=== PATIENT | male | born 1950 | race Caucasian/White ===

== ENCOUNTER 2016-06-23 08:08 | Observation (INO) | payer MEDICARE, OTHER ==
[2016-06-23] VITALS (11 sets, daily range): BP systolic 134–188; BP diastolic 62–82; PULSE 56–73; RESP 17–20; TEMP 97.4–98.2; O2SAT 93–98
[~2016-06-23 08:08] MED LIST: ATEN-102 PO; ESZO2 PO; EZET10 PO; HYDR12.56 PO; LORA-474 OR; NIAC500 PO; NORV10TA OR; PRAS10TA PO; PRAV10 PO; PROB500T10 PO; PROT40TA PO; ST J81CH PO
--- NOTE | 2016-06-23 08:29 | PD ---
HPI Chief Complaint: Chest Pain Time Seen by Provider: 08:13 Travel History International Travel<30 days: No Contact w/Intl Traveler<30days: No History of Present Illness HPI This is a 66-year-old male who presents to the emergency department with chest discomfort that's been going on for 1 month, intermittent, described as mostly pain in his back radiating to the chest, associated with some shortness of breath and nausea. He has a history of a CABG and 2 stents subsequent to that surgery. He says this feels like angina. He went to the [place] 1 month ago and saw a physician assistant grocery. He was given Flexeril at that time. He hasn't had a stress test in over a year. He follows with a day camp counselor in [place]. He says overnight his pain has gotten worse and more constant and he feels like his pain is now in his left arm. He has had some nausea and some shortness of breath. He took 2 baby aspirin and a nitroglycerin tablets overnight. He says the pain is very mild at this point but he still feels it. PFSH Past Medical History Arthritis: Yes Autoimmune Disease: No Cancer: No Cardiac Catheterization: Yes Cardiovascular Problems: Yes High Cholesterol: Yes Chest Pain: Yes (nitroglycerine last taken years ago , took one today) Endocrine: No Genitourinary: No Hypertension: Yes Immune Disorder: No Musculoskeletal: Yes Neurologic: No Psychiatric: No Reproductive: No Sleep Apnea: Yes (uses C-PAP) Triglycerides - High: Yes Past Surgical History Cardiac Surgery: Yes (OPEN HEART 2000 stents 2010) Coronary Stent: Yes (4 STENTS) Social History Alcohol Use: No Tobacco Use: No Substance Use: No Allergies-Medications (Allergen,Severity, Reaction): Coded Allergies: Plavix (Verified Allergy, Severe, Swelling, 06/23/16) Terramycin (Verified Allergy, Severe, Shortness of Breath, 06/23/16) Uncoded Allergies: heparin (Allergy, Severe, Anaphylaxis, 06/22/11) Reported Meds & Prescriptions Reported Meds & Active Scripts Active Reported B Complex/Vitamin C (B Complex W/ C) 1 Cap Cap 1 Tab PO DAILY [Marine-D3] 2 Cap PO DAILY Effient (Prasugrel) 10 Mg Tab 10 Mg PO DAILY Furosemide 20 Mg Tab 20 Mg PO DAILY Atenolol 50 Mg Tab 50 Mg PO DAILY Isosorbide Mononitrate ER (Isosorbide Mononitrate) 30 Mg Jeremías 30 Mg PO DAILY D3 (Cholecalciferol) 1,000 Unit Tab 1,000 Units PO DAILY Probenecid 500 Mg Tab 500 Mg PO DAILY Aspirin 81 Mg Tabdr 81 Mg PO DAILY Losartan (Losartan Potassium) 100 Mg Tab 100 Mg PO DAILY Fish Oil ([place]-3 Fatty Acids) 1,200 Mg Cap Amlodipine (Amlodipine Besylate) 10 Mg Tab 10 Mg PO DAILY Metformin (Metformin HCl) 500 Mg Tab 500 Mg PO BIDPC With meals Lorazepam 1 Mg Tab 1 Mg PO BID PRN Trazodone (Trazodone HCl) 50 Mg Tab 25 Mg PO HS Gabapentin 300 Mg Cap 300 Mg PO BID Pantoprazole (Pantoprazole Sodium) 40 Mg Tab 40 Mg PO DAILY Ranexa ER 12 HR (Ranolazine) 500 Mg Tab 500 Mg PO BID Rosuvastatin (Rosuvastatin Calcium) 40 Mg Tab 40 Mg PO DAILY Methocarbamol 500 Mg Tab 750 Mg PO BID PRN Flonase Nasal [place] (Fluticasone Nasal Hydro) 50 Mcg/Act Hydro 50 Mcg EACH NARE BID Review of Systems Except as stated in HPI: all other systems reviewed are Neg Physical Exam Narrative GENERAL:Well appearing, no acute distress SKIN: Warm and dry. HEAD: Atraumatic. Normocephalic. EYES: Pupils equal and round. No injection or drainage. ENT: Moist mucous membranes NECK: Trachea midline. CARDIOVASCULAR: Regular rate and rhythm. No murmur appreciated. Midline sternotomy scar. RESPIRATORY: Clear to auscultation. Breath sounds equal bilaterally. GASTROINTESTINAL: Abdomen soft, non-tender, nondistended. MUSCULOSKELETAL: No obvious deformities. NEUROLOGICAL: Awake and alert. No obvious cranial nerve deficits. Moving all extremities. PSYCHIATRIC: Appropriate mood and affect; insight and judgment normal. Data Data Last Documented VS Vital Signs Date Time Temp Pulse Resp B/P Pulse Ox O2 Delivery O2 Flow Rate FiO2 06/23/16 09:24 Room Air 06/23/16 08:51 165/73 06/23/16 08:50 68 18 06/23/16 08:11 98.2 95 Orders Electrocardiogram (06/23/16 ) Complete Blood Count With Diff (06/23/16 08:23) Comprehensive Metabolic Panel (06/23/16 08:23) Prothrombin Time / Inr (Pt) (06/23/16 08:23) Act Partial Throm Time (Ptt) (06/23/16 08:23) Troponin I (06/23/16 08:23) Chest, Single Ap (06/23/16 08:23) Ecg Monitoring (06/23/16 08:23) Bilateral Bp Monitoring (06/23/16 08:23) Iv Access Insert/Monitor (06/23/16 08:23) Oximetry (06/23/16 08:23) Oxygen Administration (06/23/16 08:23) Nitroglycerin 2% Oint (Nitroglycerin 2% (06/23/16 08:30) Sodium Chloride 0.9% Flush (Ns Flush) (06/23/16 08:30) Amlodipine (Norvasc) (06/23/16 09:45) Atenolol (Tenormin) (06/23/16 09:45) Admit Order (Ed Use Only) (06/23/16 09:42) Labs Laboratory Tests Test 06/23/16 08:35 White Blood Count 9.5 TH/MM3 Red Blood Count 5.46 MIL/MM3 Hemoglobin 15.1 GM/DL Hematocrit 44.9 % Mean Corpuscular Volume 82.2 FL Mean Corpuscular Hemoglobin 27.7 PG Mean Corpuscular Hemoglobin 33.7 % Concent Red Cell Distribution Width 14.1 % Platelet Count 185 TH/MM3 Mean Platelet Volume 8.8 FL Neutrophils (%) (Auto) 77.3 % Lymphocytes (%) (Auto) 15.5 % Monocytes (%) (Auto) 5.6 % Eosinophils (%) (Auto) 1.3 % Basophils (%) (Auto) 0.3 % Neutrophils # (Auto) 7.3 TH/MM3 Lymphocytes # (Auto) 1.5 TH/MM3 Monocytes # (Auto) 0.5 TH/MM3 Eosinophils # (Auto) 0.1 TH/MM3 Basophils # (Auto) 0.0 TH/MM3 CBC Comment DIFF FINAL Differential Comment Prothrombin Time 11.0 SEC Prothromb Time International 1.0 RATIO Ratio Activated Partial 27.7 SEC Thromboplast Time Sodium Level 139 MEQ/L Potassium Level 3.9 MEQ/L Chloride Level 104 MEQ/L Carbon Dioxide Level 25.5 MEQ/L Anion Gap 10 MEQ/L Blood Urea Nitrogen 18 MG/DL Creatinine 1.35 MG/DL Estimat Glomerular Filtration 53 ML/MIN Rate Random Glucose 134 MG/DL Calcium Level 9.7 MG/DL Total Bilirubin 0.7 MG/DL Aspartate Amino Transf 30 U/L (AST/SGOT) Alanine Aminotransferase 54 U/L (ALT/SGPT) Alkaline Phosphatase 121 U/L Troponin I LESS THAN 0.02 NG/ML Total Protein 8.5 GM/DL Albumin 4.6 GM/DL MDM Medical Decision Making Medical Screen Exam Complete: Yes Emergency Medical Condition: Yes Interpretation(s) EKG: Normal sinus rhythm, no ST changes Afebrile, no tachycardia, hypertensive No leukocytosis Renal insufficiency Troponin negative Chest x-ray: Minimal parenchymal opacity of the lateral left base Differential Diagnosis Acute coronary syndrome, musculoskeletal back pain, pericarditis, pneumonia, aortic dissection Narrative Course This is a 66-year-old male who presents to the emergency department with extensive cardiac history with back pain that's present for one month. His EKG is reassuring. He is placed in a monitor and an IV was established. Labs are obtained which are reassuring. Chest x-ray demonstrates a minimal parenchymal opacity in the left lateral base the patient has no other signs of pneumonia. He took aspirin earlier this morning prior to arrival. He was given nitroglycerin as well as his home blood pressure medications in the setting of hypertension. Patient will be admitted to the chest pain center for cardiology evaluation. Diagnosis Primary Impression: Chest pain Qualified Code: R07.9 - Chest pain, unspecified type Admitting Information Admitting Physician Requests: Viviana Alamo MD Jun 23, 2016 08:29
[2016-06-23] MEDS ORDERED: SODIUM CHLORIDE 0.9% FLUSH 10 ML FLUSH IVF PRN (08:30)
[2016-06-23] MEDS ORDERED: NITROGLYCERIN 2% OINT 1 GM PACKET TOP ONE (08:30)
[2016-06-23 09:06] LABS: AUTOMATED NEUTROPHIL # 7.3 TH/MM3 (1.8-7.7); BASOPHIL % 0.3 % (0.0-2.0); EOSINOPHIL # 0.1 TH/MM3 (0-0.4); EOSINOPHIL % 1.3 % (0.0-4.0); HEMATOCRIT 44.9 % (39.0-51.0); HEMO FLAGS DIFF FINAL; LYMPH % 15.5 % (9.0-44.0); LYMPHOCYTE # 1.5 TH/MM3 (1.0-4.8); MEAN CELL VOLUME 82.2 FL (80.0-100.0); MEAN CORPUSCULAR HEMOGLOBIN 27.7 PG (27.0-34.0); MEAN CORPUSCULAR HGB CONC 33.7 % (32.0-36.0); MONO % 5.6 % (0.0-8.0); NEUT % 77.3 % (16.0-70.0); PLATELET COUNT 185 TH/MM3 (150-450); RED BLOOD COUNT 5.46 MIL/MM3 (4.50-5.90); RED CELL DISTRIBUTION WIDTH 14.1 % (11.6-17.2); WHITE BLOOD COUNT 9.5 TH/MM3 (4.0-11.0)
[2016-06-23 09:14] LABS: APTT (PATIENT) 27.7 SEC (24.3-30.1)
[2016-06-23] MEDS ORDERED: PANT40TA3 PO (09:22)
[2016-06-23] MEDS ORDERED: ROSU1TAB10 PO (09:22)
[2016-06-23] MEDS ORDERED: PRAS10TA PO (09:22)
[2016-06-23] MEDS ORDERED: FISH120014 (09:22)
[2016-06-23] MEDS ORDERED: ASPI1TAB69 PO (09:22)
[2016-06-23] MEDS ORDERED: RANO500 PO (09:22)
[2016-06-23] MEDS ORDERED: D31000TA PO (09:22)
[2016-06-23] MEDS ORDERED: ATEN50TA PO (09:22)
[2016-06-23] MEDS ORDERED: TRAZ50TA12 PO (09:22)
[2016-06-23] MEDS ORDERED: AMLO10TA2 PO (09:22)
[2016-06-23] MEDS ORDERED: METF500T PO (09:22)
[2016-06-23] MEDS ORDERED: B COCAP PO (09:22)
[2016-06-23] MEDS ORDERED: ISOS30TA3 PO (09:22)
[2016-06-23] MEDS ORDERED: LORA1TAB12 PO (09:22)
[2016-06-23] MEDS ORDERED: FLUT1SPR5 EACH NARE (09:22)
[2016-06-23] MEDS ORDERED: METH500T3 PO (09:22)
[2016-06-23] MEDS ORDERED: LOSA100T PO (09:22)
[2016-06-23] MEDS ORDERED: FURO20TA PO (09:22)
[2016-06-23] MEDS ORDERED: GABA300C5 PO (09:22)
[2016-06-23] MEDS ORDERED: PROB500T8 PO (09:22)
[2016-06-23 09:33] LABS: ALT (GPT) 54 U/L (12-78); ANION GAP 10 MEQ/L (5-15); BICARBONATE 25.5 MEQ/L (21.0-32.0); BLOOD UREA NITROGEN 18 MG/DL (7-18); CHLORIDE 104 MEQ/L (98-107); GLOMERULAR FILTRATION RATE 53 ML/MIN (>89); POTASSIUM 3.9 MEQ/L (3.5-5.1); SODIUM (NA) 139 MEQ/L (136-145)
[2016-06-23 09:35] LABS: ALKALINE PHOSPHATASE 121 U/L (45-117); TOTAL BILIRUBIN ADULT 0.7 MG/DL (0.2-1.0)
--- NOTE | 2016-06-23 09:40 | RADRPT ---
EXAM DATE/TIME: 06/23/2016 08:42 [facility] COMPARISON: No previous studies available for comparison. INDICATIONS : Chest and left arm pain. MEDICAL HISTORY : Cardiovascular disease. SURGICAL HISTORY : CABG. Quadruple bypass and 6 stents. ENCOUNTER: Initial ACUITY: 1 month PAIN SCORE: 4/10 LOCATION: Bilateral chest FINDINGS: There is minimal parenchymal opacity at the lateral left base which may be some scarring or atelectas is. Lungs otherwise clear. No significant effusion present. Cardiomediastinal contours are satisfacto ry. Sternotomy wires are present. CONCLUSION: Minimal parenchymal opacity at the lateral left base Marino Orozco MD on June 23, 2016 at 9:37 Board Certified Radiologist. This report was verified electronically.
[2016-06-23 09:41] LABS: AST (GOT) 30 U/L (15-37)
[2016-06-23] MEDS ORDERED: ATENOLOL 50 MG TAB PO ONE (09:45)
[2016-06-23] MEDS ORDERED: ONDANSETRON HCL 4 MG/2 ML VIAL IV PRN (10:30)
[2016-06-23] MEDS ORDERED: ACETAMINOPHEN 500 MG CPLT PO PRN (10:30)
[2016-06-23] MEDS ORDERED: NITROGLYCERIN 0.4 MG SL 25 TABS/BTL SL PRN (10:30)
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
[2016-06-23] MEDS: LOSARTAN 50 MG TAB PO SCH (12:23)
[2016-06-23] MEDS: ISOSORBIDE MONONITRATE 30 MG TAB PO SCH (12:23)
[2016-06-23] MEDS: GABAPENTIN 300 MG CAP PO SCH ×2 (12:24→21:10)
[2016-06-23] MEDS: FUROSEMIDE 20 MG TAB PO SCH (12:24)
[2016-06-23] MEDS: PANTOPRAZOLE SOD 40 MG DELAYED RELEASE TAB PO SCH (12:24)
[2016-06-23 12:32] LABS: CREATINE KINASE 132 U/L (39-308)
[2016-06-23 12:44] LABS: CKMB 1.3 NG/ML (0.5-3.6)
[2016-06-23] MEDS: PROBENECID 500 MG TAB PO SCH (13:45)
[2016-06-23] MEDS: ATORVASTATIN 80 MG TAB PO SCH (13:45)
[2016-06-23] MEDS: RANOLAZINE 500 MG EXTENDED RELEASE TAB PO SCH ×2 (13:45→21:10)
[2016-06-23 15:54] LABS: CREATINE KINASE 128 U/L (39-308)
[2016-06-23 16:06] LABS: CKMB 1.5 NG/ML (0.5-3.6)
[2016-06-23] MEDS: PRASUGREL 10 MG TAB PO SCH (16:22)
[2016-06-23] MEDS ORDERED: NITR1SUB3 SL (18:00)
[2016-06-23] MEDS: metFORMIN HCL 500 MG TAB PO SCH (18:47)
[2016-06-23] MEDS ORDERED: LORazepam 1 MG TAB PO PRN (19:00)
[2016-06-23] MEDS: FLUTICASONE PROPIONATE 50 MCG/ACT 16 GM NASAL SPRAY EACH NARE SCH (21:00)
[2016-06-23] MEDS: SODIUM CHLORIDE 0.9% FLUSH 10 ML FLUSH IV FLUSH SCH (21:00)
[2016-06-23] MEDS ORDERED: traZODone HCL 50 MG TAB PO SCH (21:00)
[2016-06-24 03:31] VITALS: BP 149/72; PULSE 57; RESP 20; TEMP 98.1; O2SAT 96
[2016-06-24 07:42] VITALS: BP 141/85; PULSE 56; RESP 18; TEMP 95.9; O2SAT 96
[2016-06-24] MEDS ORDERED: ASPIRIN 325 MG TAB PO SCH (09:00)
[2016-06-24] MEDS ORDERED: ATENOLOL 50 MG TAB PO SCH (09:00)
[2016-06-24] MEDS: SODIUM CHLORIDE 0.9% FLUSH 10 ML FLUSH IV FLUSH SCH (09:00)
[2016-06-24] MEDS ORDERED: REGADENOSON INJ 0.4 MG/5 ML SYR ONE (10:51)
--- NOTE | 2016-06-24 10:54 | EKG ---
Date Performed: 06/23/2016 Time Performed: 11:41:32 PTAGE: 66 years EKG: Sinus rhythm NONSPECIFIC ST & T-WAVE ABNORMALITY BORDERLINE ECG PREVIOUS TRACING : 06/23/2016 08.24 DOCTOR: Jair De Paz Interpretating Date/Time 06/24/2016 10:52:53
--- NOTE | 2016-06-24 10:59 | EKG ---
Date Performed: 06/23/2016 Time Performed: 08:24:51 PTAGE: 66 years EKG: Sinus rhythm MINIMAL ST DEPRESSION BORDERLINE ECG PREVIOUS TRACING : 06/22/2011 01.16 DOCTOR: Jair De Paz Interpretating Date/Time 06/24/2016 10:56:51
[2016-06-24] MEDS: PRASUGREL 10 MG TAB PO SCH (11:03)
[2016-06-24] MEDS: metFORMIN HCL 500 MG TAB PO SCH (11:03)
[2016-06-24] MEDS: PANTOPRAZOLE SOD 40 MG DELAYED RELEASE TAB PO SCH (11:03)
[2016-06-24] MEDS: LOSARTAN 50 MG TAB PO SCH (11:03)
[2016-06-24] MEDS: RANOLAZINE 500 MG EXTENDED RELEASE TAB PO SCH (11:04)
[2016-06-24] MEDS: ATORVASTATIN 80 MG TAB PO SCH (11:04)
[2016-06-24] MEDS: GABAPENTIN 300 MG CAP PO SCH (11:04)
[2016-06-24] MEDS: ISOSORBIDE MONONITRATE 30 MG TAB PO SCH (11:04)
[2016-06-24] MEDS: FUROSEMIDE 20 MG TAB PO SCH (11:04)
[2016-06-24] MEDS: PROBENECID 500 MG TAB PO SCH (11:05)
[2016-06-24] MEDS: FLUTICASONE PROPIONATE 50 MCG/ACT 16 GM NASAL SPRAY EACH NARE SCH (11:06)
[2016-06-24 11:39] VITALS: BP 141/67; PULSE 59; RESP 18; TEMP 95.3; O2SAT 94
--- NOTE | 2016-06-24 12:09 | RADRPT ---
EXAM DATE/TIME: 06/24/2016 09:23 [facility] COMPARISON: MYOCARDIAL PERF PHARM SPECT, GATED W/EF, June 22, 2011, 14:53. INDICATIONS : Chest discomfort for 1 month. Angina. Coronary artery bypass graft. DOSE: 35.0 mCi Tc99m Myoview at stress. 11.0 mCi Tc99m Myoview at rest. 0.4 mg Lexiscan STRESS SYMPTOMS: Shortness of breath. EJECTION FRACTION: 49% MEDICAL HISTORY : Hypertension. SURGICAL HISTORY : Coronary artery stent. CABG ENCOUNTER: Initial ACUITY: 1 month PAIN SCALE: 2/10 LOCATION: Retrosternal chest TECHNIQUE: The patient underwent pharmacologic stress with infusion of prescribed dose. Continuous ECG tracing was monitored during stress. Gated SPECT imaging was performed after stress and conventional SPECT i maging was performed at rest. The examination was performed on a SPECT/CT scanner, both attenuation and non-corrected datasets were reviewed. FINDINGS: DISTRIBUTION: The maximum perfused segment at stress is in the septal wall. PERFUSION STUDY: The examination demonstrates a moderate in size, moderate in severity, reversible perfusion defect in volving the low anterior and septal kay. Myocardial ischemia is not excluded. GATED STUDY: There is intact wall motion and thickening without hypokinetic or dyskinetic segments. CONCLUSION: Reversible perfusion defect involving portions of the septum and anterior wall as above. Myocardial i schemia is not excluded on the basis of this examination. RISK CATEGORY: High (>3% Annual Mortality Rate) Kenton Lang MD on June 24, 2016 at 12:04 Board Certified Radiologist. This report was verified electronically.
--- NOTE | 2016-06-24 12:52 | HHI.DCPOC ---
Discharge Care Plan Diagnosis: (1) Angina pectoris (2) Hx of coronary artery disease (3) Type 2 diabetes mellitus (4) Obesity (5) Hypertension Goals to Promote Your Health * To prevent worsening of your condition and complications * To maintain your health at the optimal level Directions to Meet Your Goals Take your medications as prescribed Follow your dietary instruction Follow activity as directed Keep your appointments as scheduled Take your immunizations and boosters as scheduled If your symptoms worsen call your PCP, if no PCP go to Urgent Care Center or Emergency Room Smoking is Dangerous to Your Health. Avoid second hand smoke Call the 24-hour hour crisis hotline for domestic abuse at Tammy Jeffery Jun 24, 2016 12:52
[2016-06-24] MEDS ORDERED: ISOS30TA3 PO (13:04)
[2016-06-24] MEDS ORDERED: ATEN50TA PO (13:44)
--- NOTE | 2016-06-24 16:09 | TR ---
Date Performed: 06/24/2016 Time Performed: 10:02:20 DOCTOR: Jose Zuluaga DRUG LIST: CLINICAL HISTORY: CHEST PAIN REASON FOR TEST: REASON FOR ENDING: OBSERVATION: CONCLUSION: Lexiscan stress test was performed under standard four minute protocol. Radionuclid e was injected one minute prior to ending the test. No electrocardiographic abormalities were present to suggest ischemia. Nuclear imaging and interpretation are pending. COMMENTS:
--- NOTE | 2016-06-24 16:15 | EKG ---
Date Performed: 06/23/2016 Time Performed: 14:57:10 PTAGE: 66 years EKG: SINUS BRADYCARDIA BORDERLINE ECG PREVIOUS TRACING : 06/23/2016 11.41 Since previous tracing, no significant change noted DOCTOR: Jose Zuluaga Interpretating Date/Time 06/24/2016 16:13:35
--- NOTE | 2016-06-24 16:51 | PD.CARD.PN ---
Subjective Subjective Remarks Feeling much better, no complaints, no chest pain episodes, states "I slept all night." Objective Vital Signs / I&O Vital Signs Date Time Temp Pulse Resp B/P Pulse Ox O2 Delivery O2 Flow Rate FiO2 06/24/16 11:39 95.3 59 18 141/67 94 06/24/16 07:42 95.9 56 18 141/85 96 06/24/16 03:31 98.1 57 20 149/72 96 06/23/16 23:34 98.0 59 20 163/69 96 06/23/16 21:56 96 06/23/16 20:00 57 06/23/16 19:58 98.1 56 19 134/65 95 I/O 06/23/16 06/23/16 06/23/16 06/24/16 06/24/16 06/24/16 07:00 15:00 23:00 07:00 15:00 23:00 Intake Total 240 ml Balance 240 ml Intake Oral 240 ml # Voids 3 Physical Exam GENERAL: Alert CV: RRR, without murmur, rub, gallop, no JVD, S1-S2 no S3-S4 RESP: Clear lungs throughout bilateral, no crackles, wheeze, rhonchi, Laboratory Laboratory Tests Test 06/23/16 06/23/16 08:35 14:35 White Blood Count 9.5 TH/MM3 Red Blood Count 5.46 MIL/MM3 Hemoglobin 15.1 GM/DL Hematocrit 44.9 % Mean Corpuscular Volume 82.2 FL Mean Corpuscular Hemoglobin 27.7 PG Mean Corpuscular Hemoglobin 33.7 % Concent Red Cell Distribution Width 14.1 % Platelet Count 185 TH/MM3 Mean Platelet Volume 8.8 FL Neutrophils (%) (Auto) 77.3 % Lymphocytes (%) (Auto) 15.5 % Monocytes (%) (Auto) 5.6 % Eosinophils (%) (Auto) 1.3 % Basophils (%) (Auto) 0.3 % Neutrophils # (Auto) 7.3 TH/MM3 Lymphocytes # (Auto) 1.5 TH/MM3 Monocytes # (Auto) 0.5 TH/MM3 Eosinophils # (Auto) 0.1 TH/MM3 Basophils # (Auto) 0.0 TH/MM3 CBC Comment DIFF FINAL Differential Comment Prothrombin Time 11.0 SEC Prothromb Time International 1.0 RATIO Ratio Activated Partial 27.7 SEC Thromboplast Time Sodium Level 139 MEQ/L Potassium Level 3.9 MEQ/L Chloride Level 104 MEQ/L Carbon Dioxide Level 25.5 MEQ/L Anion Gap 10 MEQ/L Blood Urea Nitrogen 18 MG/DL Creatinine 1.35 MG/DL Estimat Glomerular Filtration 53 ML/MIN Rate Random Glucose 134 MG/DL Calcium Level 9.7 MG/DL Total Bilirubin 0.7 MG/DL Aspartate Amino Transf 30 U/L (AST/SGOT) Alanine Aminotransferase 54 U/L (ALT/SGPT) Alkaline Phosphatase 121 U/L Total Protein 8.5 GM/DL Albumin 4.6 GM/DL Total Creatine Kinase 128 U/L Creatine Kinase MB 1.5 NG/ML Troponin I LESS THAN 0.02 NG/ML Imaging Last Impressions Myocardial Perfusion Scan Nuc Med 06/24/16 0800 Signed Impressions: Service Date/Time: Friday, June 24, 2016 09:23 - CONCLUSION: Reversible perfusion defect involving portions of the septum and anterior wall as above. Myocardial ischemia is not excluded on the basis of this examination. RISK CATEGORY: High (>3%% Annual Mortality Rate) Kenton Lang MD Chest X-Ray 06/23/16 08 Signed Impressions: Service Date/Time: Thursday, June 23, 2016 08:42 - CONCLUSION: Minimal parenchymal opacity at the lateral left base Marino Orozco MD Assessment and Plan Assessment and Plan #1 Chest painLexi scan completed. Dr. Zuluaga reviewed past 2 cardiac catheterizations and past Dot scan. No acute findings. Area identified is abnormal on Dot scan unchanged. Dr. Zuluaga discussed in length patient and at bedside chest discomfort he is experiencing most likely having angina. Increase atenolol to 50 twice a day. Continue Imdur 90 mg daily and Ranexa 500 mg twice a day. Discussed in length nitroglycerin tolerance. Encouraged to establish with a [employer] locally as he lives in [place] part-time. Follow with [employer] once home in [place] (leaving [place] June 30). Chemical stress test provided for his records. #2 Hypertensioncontinue losartan, amlodipine, and increase atenolol 50 mg twice a day #3 Hyperlipidemiacontinue rosuvastatin #4 Diabetescontinue metformin #5 CADcontinue Effient, Ranexa, Imdur, and amlodipine Tammy Jeffery Jun 24, 2016 16:51
== END 2016-06-24 14:11 | disposition home or self-care (01) ==
LOC: NEPC 08:08 → NEDA 09:43 → NEPGCP 13:08
PROVIDERS: ADMIT Internal Medicine Interventional Cardiology; ATTEND Internal Medicine Interventional Cardiology
DX: R07.89 Other chest pain (principal); I25.10 Atherosclerotic heart disease of native coronary artery without angina pectoris; E78.00 Pure hypercholesterolemia, unspecified; E78.5 Hyperlipidemia, unspecified; E11.9 Type 2 diabetes mellitus without complications; I10 Essential (primary) hypertension; M19.90 Unspecified osteoarthritis, unspecified site; G47.30 Sleep apnea, unspecified; Z79.82 Long term (current) use of aspirin; Z95.5 Presence of coronary angioplasty implant and graft; Z95.1 Presence of aortocoronary bypass graft; Z79.84 Long term (current) use of oral hypoglycemic drugs
CPT/HCPCS: 71010; 78452; 80053; 82550; 82552; 84484; 85025; 85610; 85730; 93005; 93017; A9502; G0378; J2785